=== PATIENT | female | born 1960 | race Caucasian/White ===

== ENCOUNTER → 2017-09-03 | Outpatient (CLI) | payer OTHER ==
[~2017-09-03] VITALS: Ht 167.6 cm; Wt 83.9 kg
[~2017-09-03] MED LIST: FLEXERIL; HORMONE TROCHE; HYDROCODON-ACE1 EAC7; MAXALT MLT10 MG PO; MAXALT10 MG; MOBIC15 MG PO; MOBIC7.5 MG; MOBIC7.5 MG PO; NORCO 5-325 TA1 EACH PO; TRAMADOL 50 MG50 MG; TRAMADOL 50 MG50 MG PO
--- NOTE | ~2017-09-03 | HPC ---
[facility] [place] [address] PAIN MANAGEMENT CONSULTATION Name: JOSE ALFREDODELL HAYLEE Room #: REG CLTravis Hester#: [id number] Admission: 09/03/17 Attend Phys: Johnathon Olson DO Discharge: Date of : 60 Report #: [id number] THIS REPORT FOR: //name// CC: Delgado Olson The patient is a 57-year-old female, prior seen in the pain clinic back in January 2015, for symptomatic SI mediated pain. She was given a right SI joint injection at that time. She prior had a left SI joint injection in December 2014, prior to had bilateral SI joint injections back in 2010. The patient returns to pain clinic today, having been lost to follow up for 2-1/2 years, she notes prior injections have afforded excellent relief, 100% relief for about 2-1/2 years, pain has begun to recur without antecedent trauma, though she does note she fractured her right ankle in May and was wearing a walking boot with some modest gait change, she notes pain seems to have been exacerbated at that time. She describes chronic, sharp, grabbing pain in the left low back, she rates it a 4-5 on a VAS, exacerbated with standing and bending. To her credit, she is continuing to do physical therapy as prescribed by her physical therapist in [place], [place]. She does exercise at home as well as therapy with the therapist. She is loathe to take oral medications, she takes a very rare anti-inflammatory. PHYSICAL EXAMINATION: Shows a 57-year-old female, BMI is 29.9 kg/m2. Blood pressure 126/85, pulse 73, and respirations 16. Alert and oriented to person, place and time, judged to be a reasonable historian. Pupils are equal, react to light and accommodation. Extraocular muscles are intact. There is no nystagmus or lateral gaze deviation. Rises from chair using armrest. Gait is tandem. Straight leg raise is negative. Slight decreased left leg strength, though difficult to tell if this is effort related as hip flexion resistance exacerbates left low back pain. Positive Odell/Radha test, positive Gaenslen's test and positive pelvic distraction test all point to left SI mediated pain. She does have some point tenderness over the left SI as well. Skin integument is otherwise intact. DIAGNOSTIC STUDIES: Quite dated May 2011, MRI of the lumbar spine did note some L4-L5 facet degenerative changes and some subtle bulging at L5-S1, though again this is not associated with any significant lumbar radicular symptoms. ASSESSMENT: Symptomatic lumbosacral spondylosis with primarily left greater than right sacroiliac mediated pain. The patient having had excellent relief for greater than a year with prior injections (sacroiliac joint). Loathe to take opiate analgesics, does take a little dptw-hmx-wyrunon anti-inflammatory. She is doing ongoing core strengthening exercises, pain has been greater than 6 weeks despite adequate therapy and the patient does have positive diagnostic [address] [address] PAIN MANAGEMENT CONSULTATION Name: DELL VELIZ Room #: EMILY Hester#: [id number] Admission: 09/03/17 Attend Phys: Johnathon Olson DO Discharge: Date of : 60 Report #: [id number] test including Odell/Radha test, positive Gaenslen's test and positive pelvic distraction. RECOMMENDATIONS: 1. We will seek authorization for left SI joint injection under fluoroscopy. 2. Continue core therapy. 3. Recommend a little more aggressive use of [id number]-txs-ksokonu NSAID (recommend Aleve 220 mg b.i.d. with meals). <ELECTRONICALLY SIGNED> By: oJhnathon Olson DO 09/04/17 0810 1224 1537 Johnathon Olson DO /nt
[2017-09-03 09:51] VITALS: BP 126/85
== END ==
LOC: PAIN 08-03 07:18
DX: M47.897 Other spondylosis, lumbosacral region (principal); M53.3 Sacrococcygeal disorders, not elsewhere classified

== ENCOUNTER → 2017-09-24 | Outpatient (CLI) | payer OTHER ==
[~2017-09-24] VITALS: Ht 167.6 cm; Wt 83.4 kg
--- NOTE | ~2017-09-24 | HPC ---
[facility] [place] [address] PAIN MANAGEMENT CONSULTATION Name: JOSE ALFREDODELL HAYLEE [facility] #: [facility] [id number] Admission: 09/24/17 Attend Phys: Johnathon Olson DO Discharge: Date of : 60 Report #: [id number] THIS REPORT FOR: //name// CC: Delgado Olson DATE OF SERVICE: 09/24/2017 The patient is a 57-year-old female, prior seen in the pain clinic 09/03/2017, diagnosed with symptomatic SI mediated pain. We sought authorization for left SI joint injection. Continued the patient with core therapy and suggested she use Aleve OTC. Returns to pain clinic today noting pain score remains 2-3 on VAS. Pain again primarily left low back and SI area, exacerbated with standing, walking and bending. She is not a fall risk. She is not hypertensive. She is not using chronic opiates. PHYSICAL EXAMINATION: Unchanged from last visit. ASSESSMENT: Symptomatic sacroiliac mediated pain (left). PROCEDURE: Left SI joint injection under fluoroscopy. PROCEDURE NOTE: After written informed consent was obtained, the patient was taken to the fluoroscopy suite and placed in prone position. After sterile prep and drape, skin wheal was raised. A 22-gauge stylet needle was placed to contact the inferior aspect of the left SI joint. Negative aspiration was accomplished. 1 mL of Omnipaque was injected, which showed spread within the joints followed with 40 mg triamcinolone plus 2 mL of 0.5% preservative-free bupivacaine. Needle was removed, area was cleansed, Band-Aid applied. Fluoroscopy time was under 10 seconds. The patient was discharged in good and stable condition. Follow up is as needed. <ELECTRONICALLY SIGNED> By: Johnathon Olson DO 09/25/17 0725 [id number] 1243 Johnathon Olson DO /nt
[2017-09-24 09:47] VITALS: BP 126/79
== END | disposition home or self-care (01) ==
LOC: PAIN 06:46
DX: M53.3 Sacrococcygeal disorders, not elsewhere classified (principal); G89.29 Other chronic pain